=== PATIENT | female | born 2005 | race Two or more races ===

== ENCOUNTER 2024-01-26 00:04 | Inpatient (IN) | payer BC, MEDICAID, SELFPAY ==
[2024-01-26] VITALS (26 sets, daily range): BP systolic 103–178; BP diastolic 57–138; PULSE 73–127; TEMP 36.1–36.8
[2024-01-26] MEDS: ROPIVACAINE HCL/PF 400 MG/200 ML PREMIX 6 MG EPIDURAL (00:56)
[2024-01-26] MEDS: LACTATED RINGER'S SOLUTION 1,000 ML 125 ML IV (01:05)
[2024-01-26 01:21] LABS: Hematocrit 35.1 % (36.0-48.0); Hemoglobin 11.4 g/dL (12.0-16.0); Mean Corpuscular HGB Conc 32.5 g/dL (29.9-35.2); Mean Platelet Volume 10.6 fL (9.5-13.5); Platelet Count 266 10^3/uL (150-450); Red Blood Count 4.56 10^6/uL (4.20-5.40); Red Cell Distribution Width 14.6 % (11.0-15.0); White Blood Count 12.7 10^3/uL (4.0-11.0)
[2024-01-26] MEDS: NALBUPHINE HCL 10 MG/ML AMPULE IV (01:22)
--- NOTE | 2024-01-26 03:29 | PM.OBHP ---
OB - H&P: HPI History of Present Illness Chief complaint: LEAKING FLUID 39 WEEKS : 1 Para: 0 Gestational age based on last menstrual period: 39.1 History of Present Dating criteria: LMP confirmed by 1st trimester US care: good care Ultrasounds: normal 1st trimester US and normal mid trimester US Medical complications OB: none Labs Blood type: O (+) positive Rubella: immune RPR/VDLR: nonreactive GBS status: negative HBsAG: negative Review of Systems ROS Status of ROS: 10 or more systems reviewed and unremarkable except as noted in history and below Exam Constitutional Vital Signs, click to edit/add: Last Vital Signs Pulse 108 H 01/26/24 03:25 BP 120/87 01/26/24 03:25 Documenting provider has reviewed patient's vital signs: yes Common normals: no apparent distress Exam limitations: altered mental status General appearance: cooperative, comfortable and well kempt Orientation/consciousness: Yes awake, Yes oriented to person, Yes oriented to place and Yes oriented to time HENMT Common normals: normocephalic Eye General eye: normal appearance of both eyes Neck & C-Spine Common normals: full ROM Lymph Lymphatic: no lymphadenopathy noted Respiratory Common normals: normal respiratory effort Effort & inspection: able to speak in complete sentences Auscultation: clear to auscultation bilaterally Cardio Common normals: no JVD, regular rate and regular rhythm Rate: regular rate GI Common normals: Normal to inspection, nondistended, normoactive bowel sounds present Palpation: soft Common normals: no CVA tenderness Back & Pelvis Common normals: no CVA tenderness Extremity Common normals: normal to inspection and full ROM General: normal exam except as noted Neuro Common normals: oriented x3 Sensorium/orientation: awake, alert, oriented to person, oriented to place and oriented to time Psych Common normals: mental status grossly normal Attitude: calm Thought process: normal thought process Results Labs Labs: Short CBC 01/26/24 Range/Units 01:00 WBC 12.7 H (4.0-11.0) 10^3/uL Hgb 11.4 L (12.0-16.0) g/dL Hct 35.1 L (36.0-48.0) % Plt Count 266 (150-450) 10^3/uL OB - A/P Assessment and Plan (1) Term : Plan term Additional Plan Induction method: none Plan: expectant management Urinary Catheter Management Urinary Catheter Management Urethral: Cath placed during this visit: yes Urethral indwelling: Yes Reason for continuing: prolonged immobilization Insertion date: 01/26/24
[2024-01-26 03:31] LABS: Bilirubin Urine NEGATIVE (NEGATIVE); Blood Urine LARGE (NEGATIVE); Clarity Urine CLEAR (CLEAR); Color Urine YELLOW (YELLOW); Glucose Urine UA NEGATIVE (NEGATIVE); Ketones Urine >=80 mg/dL (NEGATIVE); Leukocyte Esterase Urine TRACE (NEGATIVE); Nitrite Urine NEGATIVE (NEGATIVE); Protein Urine 100 mg/dL (NEG/TRACE); pH Urine 8.5 (5.0-9.0)
[2024-01-26 03:37] LABS: Urine Microscopic Indicated YES
[2024-01-26 03:47] LABS: Amphetamine Screen Urine NEGATIVE (NEGATIVE); Barbiturates Screen Urine NEGATIVE (NEGATIVE); Benzodiazepines Screen Urine NEGATIVE (NEGATIVE); Buprenorphine Screen Urine NEGATIVE (NEGATIVE); Cannabinoid Screen Urine NEGATIVE (NEGATIVE); Cocaine Screen Urine NEGATIVE (NEGATIVE); Methadone Screen Urine NEGATIVE (NEGATIVE); Methamphetamines Screen Urine NEGATIVE (NEGATIVE); Opiate Screen Urine NEGATIVE (NEGATIVE); Oxycodone Screen Urine NEGATIVE (NEGATIVE); Phencyclidine Screen Urine NEGATIVE (NEGATIVE); Tricyclic Antidepressant Urine NEGATIVE (NEGATIVE)
[2024-01-26 03:53] LABS: Bacteria Urine LARGE #/HPF (NONE SEEN); Cast Seen? NONE SEEN #/LPF (NONE SEEN); Crystals Seen? None Seen #/HPF (None Seen); Mucus Urine MODERATE (NONE SEEN); Squamous Epithelial Cell Urine MODERATE #/LPF (NONE/RARE); Urine Culture Indicated YES; WBC Urine >100 #/HPF (NONE SEEN)
[2024-01-26] MEDS: LIDOCAINE HCL 1% 200 MG/20 ML MDV INJ (04:15)
[2024-01-26] MEDS: OXYTOCIN/0.9 % SODIUM CHLORIDE 20 UNITS/1,000 ML PLAST..BAG 125 UNIT IV (04:22)
--- NOTE | 2024-01-26 04:51 | PM.OBPRCVD ---
Procedure Procedure: Normal spontaneous vaginal delivery Intrapartal events: None Induction method: none Delivery monitor: external FHT and external uterine Route of delivery: Episiotomy Description: right mediolateral L&D Laceration Description: perineal - 2nd degree Delivery repair: Vicryl Estimated blood loss (mL): 200 Anesthesia type: Epidural Delivery date: 01/26/24 Gender: male presentation: vertex Placental delivery description: Spontaneous cord description: 3 Vessels heart rate - 1 minute: 100 bpm or Greater respiratory effort - 1 minute: Spontaneous/Strong Cry muscle tone - 1 minute: Active Movement reflex response - 1 minute: Prompt Response color - 1 minute: Bluish Hands or Feet total score - 1 minute: 9 heart rate - 5 minute: 100 bpm or Greater respiratory effort - 5 minute: Spontaneous/Strong Cry muscle tone - 5 minute: Active Movement reflex response - 5 minute: Prompt Response color - 5 minute: Bluish Hands or Feet total score - 5 minute: 9
[2024-01-26] MEDS: GLYCERIN/WITCH HAZEL PADS 1 PAD TOPICAL (08:23)
[2024-01-26] MEDS: BENZOCAINE/MENTHOL 85 GRAM SPRAY BOTTLE 1 APPLIC TOPICAL (08:23)
[2024-01-26] MEDS: IBUPROFEN 400 MG TABLET 800 MG PO ×2 (08:23→17:10)
[2024-01-27] MEDS: IBUPROFEN 400 MG TABLET 800 MG PO (07:19)
[2024-01-27 08:02] VITALS: BP 116/70; PULSE 98; TEMP 36.8
--- NOTE | 2024-01-27 09:18 | P.OBPN_ITS ---
OB - PN: Subj Subjective Patient comments: no complaints and pain well controlled [place] status: doing well Exam Constitutional Vital Signs, click to edit/add: Last Vital Signs Temp 98.3 F 01/27/24 08:02 Pulse 98 H 01/27/24 08:02 Resp 16 01/27/24 08:02 BP 116/70 01/27/24 08:02 O2 Del Method Room Air 01/27/24 08:02 Documenting provider has reviewed patient's vital signs: yes Common normals: no apparent distress Respiratory Common normals: normal respiratory effort and clear to auscultation bilaterally Cardio Common normals: regular rate and regular rhythm GI Common normals: Normal to inspection, nondistended, normoactive bowel sounds present Extremity Common normals: no clubbing, cyanosis or edema Urinary Catheter Management Urinary Catheter Management Urethral: Cath placed during this visit: yes Urethral indwelling: Yes Reason for continuing: decision to DC catheter Insertion date: 01/26/24 OB - PN: A/P Assessment and Plan (1) Term : Plan - Vaginal Delivery day: 1 Plan: routine care, discharge home and follow up 6 weeks Time Spent with Patient Time: Total time spent is greater than 50% in coordination of care (as documented) at patient's floor/unit and/or counseling patient: Total time spent with greater than 50% in coordination of care (as documented) at patient's floor/unit and/or counseling patient: less than 15 minutes
== END 2024-01-27 15:40 | disposition home or self-care (01) | DRG 807 ==
PROVIDERS: Obstetrics & Gynecology; Admitting Provider Midwife; Visit Provider Midwife
DX: O70.1 Second degree perineal laceration during delivery (principal); Z37.0 Single live birth; Z3A.39 39 weeks gestation of pregnancy
CPT/HCPCS: 36415; 51702; 80307; 81001; 84112; 85027; 86850; 86900; 86901; 87086; J2300; J2795

== ENCOUNTER 2024-01-29 15:34 | Outpatient (OUT) | payer BC, MEDICAID, SELFPAY ==
--- NOTE | 2024-01-29 16:30 | PC.NURSE ---
Charity and 3 day old Garrison arrive for follow up. Mom states is feeling well, denies concerns for self or NB. Milk coming in as breasts are full and leaking between feeds. Discussed pumping for comfort only as to not push into oversupply. Voices understanding. VSS and assessment WNL for Charity. Given information on breast feeding, and [facility]OM[facility] group. Baby is wetting 6 diapers and 4 yellow stools since midnight. Feeds at the breast every 2 hours, mom feeding before baby cries. Dad is involved and supportive of mom and baby. weight up 15 gms from discharge. Mom pleased with baby and self. Home without further concerns and aware to call as needed for support.
[2024-01-29 16:32] VITALS: BP 114/78; PULSE 110; TEMP 37.5; O2SAT 96
== END 2024-01-29 16:36 | disposition home or self-care (01) ==
LOC: FBCO 15:35
PROVIDERS: Visit Provider Midwife
DX: Z39.1 Encounter for care and examination of lactating mother (principal)